=== PATIENT | male | born 1940 | race Caucasian/White ===

== ENCOUNTER → 2023-01-13 | Outpatient (REF) | payer OTHER, MEDICARE | LOC: M SFHCDERM 17:04 | PROVIDERS: ATTEND Physician Assistant | DX: C44.309 Unspecified malignant neoplasm of skin of other parts of face (principal) ==

== ENCOUNTER → 2023-04-01 | Outpatient (REF) | payer OTHER, MEDICARE | LOC: M SFHCDERM 18:14 | PROVIDERS: ATTEND Dermatology | DX: C44.42 Squamous cell carcinoma of skin of scalp and neck (principal) ==